=== PATIENT | female | born 1995 | race Caucasian/White ===

== ENCOUNTER → 2016-07-27 | Day surgery (SDC) | payer OTHER ==
[~2016-07-27] VITALS: Ht 162.6 cm; Wt 54.4 kg
[~2016-07-27] MED LIST: BUPIVACAINE HCL 0.25% 30 ML VIAL As Ordered ONE; BUPIVACAINE HCL 0.25% 30 ML VIAL XX ONE; GLYCOPYRROLATE INJ 0.2 MG/ML 2 ML VIAL As Ordered ONE; KETOROLAC 30 MG/ML VIAL (J1885) IV SCH; KETOROLAC 60 MG/2 ML VIAL (J1885) As Ordered ONE; LIDOCAINE 1% SDV INJ 30 ML VIAL As Ordered ONE; LIDOCAINE 1% SDV INJ 30 ML VIAL XX ONE; LIDOCAINE 2% INJ 100 MG/5 ML SDV (FOR ANES.) As Ordered ONE; LR 1,000 ML IV SCH; MIDAZOLAM INJ 2 MG/2 ML VIAL (J2250) As Ordered ONE; NEOSTIGMINE 1MG/ML 5 ML SYRINGE (J2710) As Ordered ONE; NORCO, ANEXSIA 5/325MG TABLET (HYDROcodone/ACETAMINOPHEN) PO PRN; ONDANSETRON 4MG/2ML VIAL (J2405) As Ordered ONE; ONDANSETRON 4MG/2ML VIAL (J2405) IV PRN; PERCOCET 5MG/325MG TAB PO PRN; PROPOFOL 200 MG/20 ML VIAL As Ordered ONE; ROCURONIUM BROMIDE 50 MG/5 ML VIAL As Ordered ONE; ceFAZolin SOD 1 GM in D5W MINI-BAG PLUS 50 ML IV ONE; fentaNYL 100 MCG/2 ML INJECTION (J3010) As Ordered ONE; fentaNYL 100 MCG/2 ML INJECTION (J3010) IV PRN
[2016-07-27 06:47] LABS: CONTROL LINE UCG INT CTR LINE PRESENT
[2016-07-27] MEDS: LR 1,000 ML IV SCH ×2 (06:50→06:57)
--- NOTE | 2016-07-27 09:17 | RO ---
DATE OF PROCEDURE: 07/27/2016 PREOPERATIVE DIAGNOSIS: Umbilical hernia. POSTOPERATIVE DIAGNOSIS: Umbilical hernia with incarcerated preperitoneal fat. PROCEDURE: Dense laparoscopic umbilical hernia repair with 9 cm Parietex composite mesh. SURGEON: Dr. Usman Elliott. ROOFING TECHNICIAN: Dr. Delgado. ANESTHESIA: General anesthesia ESTIMATED BLOOD LOSS: Less than 10 mL. COMPLICATIONS: None. REMARKS: The patient tolerated the procedure well. PROCEDURE NOTE: Ms. Wilkinson is a 20-year-old female with a bulge on her umbilicus causing some mild discomfort with activity. Had approached our clinic to discuss repair. After discussion, we agreed on performing laparoscopic umbilical hernia repair for which she is going to the OR today. Consent was obtained from the patient after full discussion of its risks and benefits. She received Ancef preoperatively for prophylaxis. She was then brought to the operating room, placed supine on the table. Compression boots on lower extremities placed for deep vein thrombosis (DVT) prophylaxis. General endotracheal anesthesia started without any problems. Abdomen prepped and draped in usual sterile fashion. After surgical time-out, we began our surgery. Over at the left upper quadrant subcostal area slightly laterally, a small skin incision was made where a Veress needle was inserted under controlled fashion. Intra-abdominal placement confirmed with saline drop technique. CO2 insufflation started to a pressure of 15 mmHg. Using the same incision, a 5 mm Visiport was placed under direct vision of laparoscope. The insertion site was inspected for injury and none was found. She was then placed on a slight right side down to retract bowels away from the left side port site. The umbilical hernia was located. There was preperitoneal fat incarcerated through it. A second working port was placed over the left lower quadrant area above the" level of anterior superior iliac spine. Using these two working ports, the falciform ligament was detached from its attachments to the abdominal wall in the umbilicus. The opening of the umbilical hernia defect was further opened up to push down and release the incarcerated preperitoneal fat. The preperitoneal fat was then removed from its location. We ended up with a defect of about 2 cm. I chose a 9 cm Parietex composite mesh. Two stay sutures was placed in the 12 and 6 o'clock position, this was rolled tightly and placed through the upper 5 mm port site. This was unrolled and placed in position with the rough side facing the abdominal wall. The transabdominal sutures were retrieved with the [employer] device, pulling the mesh adequately covering the defect. With the mesh held in place at the abdominal wall, a double roll of secure strap tacks were placed into the lateral tract, column was at the edge of the mesh and the internal roll was just outside the defect. The transabdominal sutures was tightly tied after serving the abdomen for any bleeding or injury. The small preperitoneal fat that we removed was retrieved back. The abdomen was deflated. All ports removed. The small 5 mm ports were closed with #4-0 Monocryl in subcuticular fashion. Dermabond was used for wound coverage. The patient was promptly awakened, extubated, brought to recovery room stable.
[2016-07-27 10:00] VITALS: BP 119/62
== END | disposition home or self-care (01) ==
LOC: M SDC 06:04
PROVIDERS: ATTEND Surgery
DX: K42.0 Umbilical hernia with obstruction, without gangrene (principal)
CPT/HCPCS: 49653; 84703; C1781; J0690; J1885; J2250; J2405; J2710; J3010

== ENCOUNTER 2018-09-05 19:24 | Emergency (ER) | payer OTHER ==
[~2018-09-05] VITALS: Ht 162.6 cm; Wt 52.3 kg
[2018-09-05] MEDS ORDERED: METOCLOPRAMIDE 10 MG TAB PO ONE (20:00)
[2018-09-05] MEDS ORDERED: ACETAMINOPHEN 325 MG TAB PO ONE (20:00)
--- NOTE | 2018-09-05 20:29 | REP ---
Clinical: Subdural hemorrhage . Comparison: None . Findings: The ventricles, sulci, and cisterns are normal in position and appearance. [place]-white differentiation is maintained. No acute intracranial hemorrhage, mass/mass effect, pathology or trauma/injury. No evidence for acute infarction. No extra-axial fluid collection. Calvarium is intact. Paranasal sinuses and mastoid air cells are clear. Skin lourdes overlie the high right parietal bone. Impression: No evidence for acute intracranial pathology or trauma/injury. Electronically Signed by Jose Tolbert MD 09/05/2018 08:20 P
[2018-09-05] MEDS ORDERED: REGL10TA6 PO (21:47)
[2018-09-05 22:10] VITALS: BP 117/67
== END 2018-09-05 22:11 | disposition home or self-care (01) ==
LOC: M ED 19:24
DX: S00.03XA Contusion of scalp, initial encounter (principal); R51 Headache; Z88.0 Allergy status to penicillin; V49.9XXA Car occupant (driver) (passenger) injured in unspecified traffic accident, initial encounter; Y92.9 Unspecified place or not applicable; Y93.9 Activity, unspecified; Y99.9 Unspecified external cause status